=== PATIENT | female | born 1970 | race African-American/Black ===

== ENCOUNTER 2021-05-05 12:21 | Inpatient (IN) ==
[2021-05-05 13:32] LABS: Basophils % 0.4 % (0.0-0.8); Eosinophils # 0.1 10*3/uL (0.0-0.87); Hematocrit 38.5 VOL% (35.7-47.0); Hemoglobin 11.9 GM/DL (12.0-16.0); Immature Granulocytes % 0.8 %; Immature Granulocytes Absolute 0.07 #; Lymphocytes # 2.1 10*3/uL (1.4-4.0); Lymphocytes % 25.2 % (21.3-54.2); Mean Corpuscular HGB Conc 30.9 GM/DL (32-36); Mean Corpuscular Volume 85.2 FL (87-102); Mean Platelet Volume 9.9 FL (9.6-12.0); Neutrophils % 62.6 % (38.7-73.9); Platelet Count 437 T/CUMM (130-400); Red Blood Count 4.52 MC/CUMM (3.8-5.5); Red Cell Distribution Width 13.7 % (9.3-17.3); White Blood Count 8.4 T/CUMM (4-12)
[2021-05-05 13:49] LABS: Albumin 3.5 G/DL (3.4-5.0); Bilirubin,Total 0.7 MG/DL (0.20-1.00); Calcium 8.5 MG/DL (8.5-10.1); Osmolality,Calculated 272.8 MOS/KG (273-304); Potassium 3.2 MMOL/L (3.5-5.1); Total Protein 8.4 G/DL (6.4-8.2)
[2021-05-05] MEDS ORDERED: AZITHROMYCIN INJ 500 MG in SODIUM CHLORIDE 0.9% 250 ML IV STA (14:17)
[2021-05-05] MEDS ORDERED: cefTRIAXone 1,000 MG in SODIUM CHLORIDE 0.9% 100 ML IV STA (14:17)
[2021-05-05] MEDS ORDERED: DEXAMETHASONE 4 MG/1 ML VIAL IV STA (14:17)
[2021-05-05] MEDS ORDERED: DEXTROSE 50% 25 GM/50 ML VIAL IV PRN (15:40)
[2021-05-05] MEDS ORDERED: GLUCAGON 1 MG VIAL IM PRN (15:40)
[2021-05-05] MEDS ORDERED: ALBUTEROL 2.5 MG/3 ML NEB RESP TX PRN (15:40)
[2021-05-05] MEDS ORDERED: guaiFENesin/DM ER 600-30 MG TABLET PO PRN (15:40)
[2021-05-05] MEDS ORDERED: AZITHROMYCIN INJ 500 MG in SODIUM CHLORIDE 0.9% 250 ML IV ONE (15:40)
[2021-05-05] MEDS ORDERED: DOCUSATE SODIUM 100 MG CAPSULE PO PRN (15:40)
[2021-05-05] MEDS ORDERED: diphenhydrAMINE CAP 25 MG CAPSULE PO PRN (15:40)
[2021-05-05] MEDS ORDERED: MELATONIN 3 MG TABLET PO PRN (15:40)
[2021-05-05] MEDS ORDERED: ONDANSETRON 4 MG/2 ML VIAL IV PRN (15:40)
[2021-05-05] MEDS ORDERED: POTASSIUM CHLORIDE 20 MEQ TABLET PO ONE (15:58)
[2021-05-05] MEDS ORDERED: POTASSIUM CHLORIDE 20 MEQ TABLET PO PRN (15:58)
[2021-05-05] MEDS: ENOXAPARIN 40 MG/0.4 ML SYRINGE SUBCUT SCH (16:43)
[2021-05-05] MEDS ORDERED: REMDESIVIR 200 MG in SODIUM CHLORIDE 0.9% 210 ML IV ONE (18:00)
[2021-05-05] MEDS: FAMOTIDINE 20 MG TABLET PO SCH (20:28)
[2021-05-05] MEDS: ASCORBIC ACID 500 MG TABLET PO SCH (20:28)
[2021-05-05] MEDS: ACETAMINOPHEN 325 MG TABLET PO PRN (21:26)
[2021-05-06] MEDS: ALBUTEROL/IPRATROPIUM 3 ML NEB RESP TX SCH (04:03)
[2021-05-06 04:27] LABS: Basophils % 0.2 % (0.0-0.8); Hemoglobin 12.6 GM/DL (12.0-16.0); Immature Granulocytes % 0.6 %; Immature Granulocytes Absolute 0.05 #; Lymphocytes % 24.5 % (21.3-54.2); Mean Corpuscular HGB Conc 30.7 GM/DL (32-36); Mean Corpuscular Volume 85.6 FL (87-102); Mean Platelet Volume 9.7 FL (9.6-12.0); NRBC # 0.02 10*3/uL; Neutrophils % 66.7 % (38.7-73.9); Platelet Count 471 T/CUMM (130-400); Red Blood Count 4.79 MC/CUMM (3.8-5.5); Red Cell Distribution Width 13.5 % (9.3-17.3); White Blood Count 8.1 T/CUMM (4-12)
[2021-05-06 04:56] LABS: Bilirubin,Total 0.7 MG/DL (0.20-1.00); Calcium 8.8 MG/DL (8.5-10.1); Ferritin 253.8 ng/mL (8-252); Osmolality,Calculated 273.8 MOS/KG (273-304); Potassium 3.6 MMOL/L (3.5-5.1); Total Protein 8.6 G/DL (6.4-8.2)
[2021-05-06 06:31] LABS: Sedimentation Rate-Westergren 31 MM/HR (0-30)
[2021-05-06] MEDS: FAMOTIDINE 20 MG TABLET PO SCH ×2 (08:40→21:05)
[2021-05-06] MEDS: PANTOPRAZOLE 40 MG TABLET PO SCH (08:40)
[2021-05-06] MEDS: DEXAMETHASONE 4 MG/1 ML VIAL IV SCH (08:40)
[2021-05-06] MEDS: CETIRIZINE 10 MG TABLET PO SCH (08:41)
[2021-05-06] MEDS: ASCORBIC ACID 500 MG TABLET PO SCH ×2 (08:41→21:05)
[2021-05-06] MEDS: ZINC GLUCONATE 50 MG TABLET PO SCH (08:41)
[2021-05-06] MEDS: CHOLECALCIFEROL 1,000 UNIT TABLET PO SCH (08:41)
[2021-05-06] MEDS: REMDESIVIR 100 MG in SODIUM CHLORIDE 0.9% 100 ML IV SCH (10:04)
[2021-05-06] MEDS: ENOXAPARIN 40 MG/0.4 ML SYRINGE SUBCUT SCH (17:54)
[2021-05-06] MEDS: ACETAMINOPHEN 325 MG TABLET PO PRN (21:06)
[2021-05-07 04:11] LABS: ABG Base Excess 0.5 MMOL/L (-2.5-2.5); ABG HCO3 24.5 MMOL/L (20-26); ABG Oxygen Saturation 94.4 % (95-100); ABG PCO2 37.3 MM HG (35-48); ABG PH 7.435 (7.35-7.45); ABG PO2 72.7 MM HG (80-95); ABG TCO2 25.6 MMOL/L (23-27)
[2021-05-07 06:22] LABS: Calcium 8.9 MG/DL (8.5-10.1); Osmolality,Calculated 281.3 MOS/KG (273-304); Potassium 3.4 MMOL/L (3.5-5.1)
[2021-05-07] MEDS: ASCORBIC ACID 500 MG TABLET PO SCH ×2 (09:23→20:05)
[2021-05-07] MEDS: FAMOTIDINE 20 MG TABLET PO SCH ×2 (09:23→20:05)
[2021-05-07] MEDS: ZINC GLUCONATE 50 MG TABLET PO SCH (09:23)
[2021-05-07] MEDS: CHOLECALCIFEROL 1,000 UNIT TABLET PO SCH (09:23)
[2021-05-07] MEDS: DEXAMETHASONE 4 MG/1 ML VIAL IV SCH (09:23)
[2021-05-07] MEDS: PANTOPRAZOLE 40 MG TABLET PO SCH (09:23)
[2021-05-07] MEDS: CETIRIZINE 10 MG TABLET PO SCH (09:24)
[2021-05-07] MEDS: REMDESIVIR 100 MG in SODIUM CHLORIDE 0.9% 100 ML IV SCH (10:51)
[2021-05-07] MEDS: ENOXAPARIN 40 MG/0.4 ML SYRINGE SUBCUT SCH (20:05)
[2021-05-07] MEDS: MELATONIN 3 MG TABLET PO SCH (20:05)
[2021-05-07] MEDS: ALBUTEROL INHALER 18 GM INH SCH (20:30)
[2021-05-08] MEDS: ALBUTEROL INHALER 18 GM INH SCH ×2 (01:00→20:05)
[2021-05-08 04:27] LABS: ABG Base Excess -0.4 MMOL/L (-2.5-2.5); ABG Oxygen Saturation 93.4 % (95-100); ABG PCO2 36.4 MM HG (35-48); ABG PH 7.421 (7.35-7.45); ABG PO2 70.8 MM HG (80-95); ABG TCO2 20.8 MMOL/L (23-27); Allen Test Positive; Pt O2 Delivery Device Room Air
[2021-05-08 06:50] LABS: Osmolality,Calculated 276.5 MOS/KG (273-304); Potassium 3.4 MMOL/L (3.5-5.1)
[2021-05-08] MEDS: ASCORBIC ACID 500 MG TABLET PO SCH ×2 (08:47→20:05)
[2021-05-08] MEDS: CHOLECALCIFEROL 1,000 UNIT TABLET PO SCH (08:47)
[2021-05-08] MEDS: PANTOPRAZOLE 40 MG TABLET PO SCH (08:47)
[2021-05-08] MEDS: DEXAMETHASONE 4 MG TABLET PO SCH (08:48)
[2021-05-08] MEDS: CETIRIZINE 10 MG TABLET PO SCH (08:49)
[2021-05-08] MEDS: ZINC GLUCONATE 50 MG TABLET PO SCH (08:49)
[2021-05-08] MEDS: FAMOTIDINE 20 MG TABLET PO SCH ×2 (08:49→20:05)
[2021-05-08] MEDS: REMDESIVIR 100 MG in SODIUM CHLORIDE 0.9% 100 ML IV SCH (09:13)
[2021-05-08] MEDS: MELATONIN 3 MG TABLET PO SCH (20:05)
[2021-05-08] MEDS: ENOXAPARIN 40 MG/0.4 ML SYRINGE SUBCUT SCH (20:05)
[2021-05-09] MEDS: ALBUTEROL INHALER 18 GM INH SCH (01:00)
[2021-05-09 07:22] LABS: Basophils % 0.1 % (0.0-0.8); Eosinophils % 0.1 % (0.00-10.9); Hematocrit 37.4 VOL% (35.7-47.0); Hemoglobin 11.6 GM/DL (12.0-16.0); Immature Granulocytes % 0.8 %; Immature Granulocytes Absolute 0.09 #; Lymphocytes % 18.1 % (21.3-54.2); Mean Corpuscular Volume 85.6 FL (87-102); Mean Platelet Volume 9.9 FL (9.6-12.0); Monocytes % 10.6 % (1.7-12.7); Neutrophils % 70.3 % (38.7-73.9); Platelet Count 485 T/CUMM (130-400); Red Blood Count 4.37 MC/CUMM (3.8-5.5); Red Cell Distribution Width 13.9 % (9.3-17.3); White Blood Count 11.2 T/CUMM (4-12)
[2021-05-09 07:29] LABS: Calcium 8.9 MG/DL (8.5-10.1); Osmolality,Calculated 280.4 MOS/KG (273-304); Potassium 3.4 MMOL/L (3.5-5.1)
[2021-05-09] MEDS: DEXAMETHASONE 4 MG TABLET PO SCH (08:42)
[2021-05-09] MEDS: PANTOPRAZOLE 40 MG TABLET PO SCH (08:42)
[2021-05-09] MEDS: FAMOTIDINE 20 MG TABLET PO SCH (08:42)
[2021-05-09] MEDS: ASCORBIC ACID 500 MG TABLET PO SCH (08:42)
[2021-05-09] MEDS: CHOLECALCIFEROL 1,000 UNIT TABLET PO SCH (08:43)
[2021-05-09] MEDS: CETIRIZINE 10 MG TABLET PO SCH (08:43)
[2021-05-09] MEDS: ZINC GLUCONATE 50 MG TABLET PO SCH (08:43)
[2021-05-09] MEDS: REMDESIVIR 100 MG in SODIUM CHLORIDE 0.9% 100 ML IV SCH (10:05)
[2021-05-09 12:05] VITALS: BP 154/85
== END 2021-05-09 14:05 | disposition home or self-care (01) | DRG 177 ==
LOC: N.EDINP 12:21 → N.ED 12:21 → SUATTDRO 15:40 → N.EDINP 16:46 → N.2E 17:18 → SUATTDRO 05-06 14:27 → N.2E 05-09 04:07
PROVIDERS: ADMIT Phlebology; ATTEND Emergency Medicine